=== PATIENT | female | born 1950 | race Caucasian/White ===

== ENCOUNTER 2018-12-02 22:49 | Inpatient (IN) | payer MEDICARE ==
[~2018-12-02] VITALS: Ht 161.3 cm; Wt 64.6 kg
[2018-12-02 23:00] VITALS: BP 114/54
[2018-12-02] MEDS ORDERED: NITROGLYCERIN PREMIX 250 ML IV PRN (23:30)
[2018-12-02] MEDS ORDERED: LEVO100T5 PO (23:34)
[2018-12-02] MEDS ORDERED: ESCITALOPRAM OX20 MG PO (23:35)
[2018-12-02] MEDS ORDERED: BUPR150T6 PO (23:37)
[2018-12-02] MEDS ORDERED: PANT40GR PO (23:38)
[2018-12-02] MEDS ORDERED: GABA600T7 PO (23:39)
[2018-12-02] MEDS ORDERED: MULT-650 PO (23:40)
[2018-12-02] MEDS ORDERED: FISH1CAP PO (23:41)
[2018-12-02] MEDS ORDERED: ASPI-630 PO (23:42)
[2018-12-02] MEDS ORDERED: NAPR220T70 PO (23:43)
[2018-12-02] MEDS ORDERED: CYCL10TA2 PO (23:44)
[2018-12-02] MEDS ORDERED: ATOR20TA58 PO (23:44)
[2018-12-02] MEDS ORDERED: HYDR-2761 PO (23:45)
[2018-12-02] MEDS ORDERED: [UNRECOGNIZED DRUG - REMARK] (23:46)
--- NOTE | 2018-12-02 23:54 | NUR ---
Admit from [facility] ER via EMS. Arrival 2244. A/O x 4. Skin warm, dry and pink. Transferred self from gurney to bed with minimal assist. Ambulated to with standby assist to void on arrival to room. Denies chest pain at this time. Nitro drip infusing at 5mcg/min started at [facility]. Sister Gladis at bedside. Orientated to room and call light. Reviewed POC to include NPO and lab draws such as troponin. Patient verbalized understanding. Resting in bed. Call light is at hand. VSS.
[2018-12-03] VITALS (25 sets, daily range): BP systolic 97–171; BP diastolic 41–64
[2018-12-03 07:30] LABS: BASO # 0.1 x10^3/uL (0.0-0.2); BASO % 1 % (0-3); EOS # 0.4 x10^3/uL (0.0-0.7); EOS % 5 % (0-3); HEMATOCRIT 35.4 % (36.0-47.0); HEMOGLOBIN 11.5 g/dL (12.0-15.5); LYMPH % 39 % (24-48); MEAN CORPUSCULAR HEMOGLOBIN 28 pg (25-35); MEAN CORPUSCULAR HGB CONC 32 g/dL (31-37); MEAN CORPUSCULAR VOLUME 85 fL (79-100); MONO # 0.6 x10^3/uL (0.0-1.1); MONO % 8 % (0-9); NEUT # 3.6 x10^3uL (1.8-7.7); NEUT % 47 % (31-73); PLATELET COUNT 239 x10^3/uL (140-400); RED BLOOD COUNT 4.15 x10^6/uL (3.50-5.40); RED CELL DISTRIBUTION WIDTH 19.6 % (11.5-14.5); WHITE BLOOD COUNT 7.6 x10^3/uL (4.0-11.0)
[2018-12-03 07:54] LABS: POTASSIUM 4.3 mmol/L (3.5-5.1)
[2018-12-03 08:19] LABS: CHOLESTEROL/HDL RATIO 1.5
--- NOTE | 2018-12-03 11:36 | PDOC2 ---
CARDIAC CONSULT DATE OF CONSULT Date of Consult DATE: 12/03/18 TIME: 11:24 REASON FOR CONSULT Reason for Consult: Chest pain REFERRING PHYSICIAN Referring Physician: Dr. Araujo SOURCE Source: Chart review, Patient HISTORY OF PRESENT ILLNESS HISTORY OF PRESENT ILLNESS This is a 68 yo female who initially presented to [facility] secondary to chest pain. Due to presentation/symptomatology with resolution with nitroglycerin, patient was transferred to [facility] for further evaluation and treatment. Patient reports pain began yesterday evening while driving home from the grocery store. Located in her left chest and radiated to her left shoulder. Describes a stabbing in nature. Associated with SOA and nausea/vomiting. No dizziness, diaphoresis, or palpitations. Seems to be slightly worse with deep breathing. Resolved with nitro in ED. Was transferred to [facility] with nitro gtt and has been pain free overnight. Patient reports pain to be similar to what she experienced last March when she had a mild KS. Cardiac cath at that time show mild non-obstructive CAD per her report. PAST MEDICAL HISTORY Cardiovascular: CAD (non-obstructive), KS Pulmonary: No pertinent hx CENTRAL NERVOUS SYSTEM: Seizure (as a child) GI: GERD Heme/Onc: Anemia NOS, Cancer (breast) Psych: Anxiety, Depression Musculoskeletal: Osteoarthritis Infectious disease: No pertinent hx ENT: No pertinent hx Renal/: No pertinent hx Endocrine: No pertinent hx Dermatology: No pertinent hx PAST SURGICAL HISTORY Past Surgical History: Cholecystectomy, Cataract Removal, Tonsillectomy, Hysterectomy, Other (left mastectomy, multile eye surgeries) FAMILY HISTORY Family History: Coronary Artery Disease, Diabetes SOCIAL HISTORY Smoke: No ALCOHOL: none Drugs: None Lives: with Family CURRENT MEDICATIONS CURRENT MEDICATIONS Current Medications Medications (Trade) Dose Ordered Sig/[place] Route PRN Reason Start Time Stop Time Status Last Admin Dose Admin Nitroglycerin/ Dextrose 250 ml @ 1.5 mls/hr CONT PRN IV SEE I/O RECORD 12/02/18 23:30 12/02/18 22:45 ALLERGIES ALLERGIES: Coded Allergies: tetracycline (Verified Allergy, Severe, coma, 12/02/18) ROS Review of System 14 point ROS conducted with pertinent positives noted above in HPI. PHYSICAL EXAM General: Alert, Oriented X3, Cooperative, No acute distress HEENT: Atraumatic, Mucous membr. moist/pink Lungs: Clear to auscultation, Normal air movement Heart: Regular rate, Normal S1, Normal S2, No murmurs Abdomen: Soft, No tenderness Extremities: No edema, Normal pulses Skin: No breakdown, No significant lesion Neuro: Normal speech, Sensation intact Psych/Mental Status: Mental status NL, Mood NL MUSCULOSKELETAL: Osteoarthritic changes both hands VITALS VITALS Vital Signs Date Time Temp Pulse Resp B/P (MAP) Pulse Ox O2 Delivery O2 Flow Rate FiO2 12/03/18 11:04 98.3 52 18 138/58 (84) 96 Room Air 98.3 LABS Lab: Laboratory Tests Test 12/03/18 00:05 12/03/18 07:15 Troponin I Quantitative < 0.017 ng/mL (0.000-0.055) < 0.017 ng/mL (0.000-0.055) White Blood Count 7.6 x10^3/uL (4.0-11.0) Red Blood Count 4.15 x10^6/uL (3.50-5.40) Hemoglobin 11.5 g/dL (12.0-15.5) Hematocrit 35.4 % (36.0-47.0) Mean Corpuscular Volume 85 fL (79-100) Mean Corpuscular Hemoglobin 28 pg (25-35) Mean Corpuscular Hemoglobin Concent 32 g/dL (31-37) Red Cell Distribution Width 19.6 % (11.5-14.5) Platelet Count 239 x10^3/uL (140-400) Neutrophils (%) (Auto) 47 % (31-73) Lymphocytes (%) (Auto) 39 % (24-48) Monocytes (%) (Auto) 8 % (0-9) Eosinophils (%) (Auto) 5 % (0-3) Basophils (%) (Auto) 1 % (0-3) Neutrophils # (Auto) 3.6 x10^3uL (1.8-7.7) Lymphocytes # (Auto) 3.0 x10^3/uL (1.0-4.8) Monocytes # (Auto) 0.6 x10^3/uL (0.0-1.1) Eosinophils # (Auto) 0.4 x10^3/uL (0.0-0.7) Basophils # (Auto) 0.1 x10^3/uL (0.0-0.2) Sodium Level 145 mmol/L (136-145) Potassium Level 4.3 mmol/L (3.5-5.1) Chloride Level 107 mmol/L (98-107) Carbon Dioxide Level 30 mmol/L (21-32) Anion Gap 8 (6-14) Blood Urea Nitrogen 14 mg/dL (7-20) Creatinine 1.0 mg/dL (0.6-1.0) Estimated GFR (Cockcroft-Gault) 55.0 Glucose Level 81 mg/dL (70-99) Calcium Level 9.0 mg/dL (8.5-10.1) Triglycerides Level 67 mg/dL (0-150) Cholesterol Level 113 mg/dL (0-200) LDL Cholesterol, Calculated 24 mg/dL (0-100) VLDL Cholesterol, Calculated 13 mg/dL (0-40) Non-HDL Cholesterol Calculated 37 mg/dL (0-129) HDL Cholesterol 76 mg/dL (40-60) Cholesterol/HDL Ratio 1.5 ASSESSMENT/PLAN ASSESSMENT/PLAN 1. Chest pain. Troponin series normal- AMI ruled out. Concerns for UA 2. CAD; non-obstructive from cardiac cath last year 3. Hypertension; controlled 4. Hyperlipidemia; statin 6. Sinus bradycardia. No pauses noted on tele 7. GERD Recommendations Check lipids Resume ASA Obtain echo to assess LV systolic function Avoid AV richard blocking agents D/w primary director revenue. Given risk factors, history, and presentation, recommend cardiac cath with possible PCI. R/b/a discussed with patient and she is agreeable. Will proceed with later today. STAR ANDERSON APRN Dec 03, 2018 11:36
--- NOTE | 2018-12-03 11:49 | NUR ---
SS following for discharge planning. SS reviewed pt chart. Pt is from home with spouse and currently on room air. Pt is listed as self pay but [facility] met with pt this morning in room and was notified by pt that she has [facility] insurance. Case management notified. No discharge needs noted at this time. SS will continue to follow for pending discharge needs.
--- NOTE | 2018-12-03 11:57 | HP ---
ADMIT DATE: 12/03/2018 CHIEF COMPLAINT: Chest pain. HISTORY OF PRESENT ILLNESS: The patient is a pleasant 68-year-old female who went to [facility] last night. She had chest pain. She had associated palpitations rated at 9/10. She describes it as agonizing on the left side. They placed her on nitro drip that seemed to help her pain. She has now been transferred to our facility where we are awaiting Cardiology input. The patient is currently being examined on the telemetry floor. PAST MEDICAL HISTORY: CAD with previous myocardial infarction, seizures, GERD, anemia, breast cancer, depression, osteoarthritis, cholecystectomy, cataract surgery, tonsillectomy, hysterectomy, mastectomy, multiple eye surgeries. ALLERGIES: TETRACYCLINE. FAMILY HISTORY: Coronary artery disease. SOCIAL HISTORY: She does not drink, smoke or take drugs. MEDICATIONS: Reviewed. She is on 13 home meds including cyclobenzaprine, atorvastatin, aspirin, Aleve, hydrocodone, gabapentin, Wellbutrin, Protonix, Synthroid, and vitamins. REVIEW OF SYSTEMS: GENERAL: No history of weight change, weakness or fevers. SKIN: No bruising, hair changes or rashes. EYES: She complains of left eye drainage. She had a recent procedure on that eye. NOSE AND THROAT: No history of nosebleeds, hoarseness or sore throat. HEART: No history of palpitations, chest pain or shortness of breath on exertion. LUNGS: Denies cough, hemoptysis, wheezing or shortness of breath. GASTROINTESTINAL: Denies changes in appetite, nausea, vomiting, diarrhea or constipation. GENITOURINARY: No history of frequency, urgency, hesitancy or nocturia. NEUROLOGIC: Denies history of numbness, tingling, tremor or weakness. PSYCHIATRIC: No history of panic, anxiety or depression. ENDOCRINE: No history of heat or cold intolerance, polyuria or polydipsia. EXTREMITIES: Denies muscle weakness, joint pain, pain on walking or stiffness. PHYSICAL EXAMINATION: VITAL SIGNS: Temperature afebrile, pulse is 52, respirations 18, blood pressure 138/58. GENERAL: She is alert, cooperative. Her is present. HEART: Normal S1, S2. LUNGS: Clear. ABDOMEN: Soft. EXTREMITIES: No edema. SKIN: No rash. ENDOCRINE: No thyromegaly. LYMPHATICS: No cervical nodes. HEMATOPOIETIC: No bruising. PSYCHIATRIC: She is stable. HEENT: The left eye has some drainage. LABORATORY DATA: White count 7, hemoglobin 11.5, platelets 239. Electrolytes are normal. Troponin is 0. ASSESSMENT AND PLAN: Chest pain, rule out recurrent coronary artery disease. The patient has been admitted on a nitro drip. We are doing cardiac enzymes. Continue nitro drip, cardiac monitoring, home meds. Consult Cardiology. Suspect she might need a stress test. DVT prophylaxis. Full code. PROGNOSIS: Guarded. STANLEY DENNEY DO DR: WHIT/abiola JOB#: [id number] / [id number]
[2018-12-03] MEDS ORDERED: ASPIRIN ENTERIC COATED 81 MG TABLET.DR. PO SCH (12:00)
--- NOTE | 2018-12-03 12:18 | CARD ---
MR#: [id number] Date of Study: 12/03/2018 Ordering Physician: STAR ANDERSON, Referring Physician: RUSTY QUESADA, Tech: Dorene Pack APPROVED REPORT EXAM: Two-dimensional and M-mode echocardiogram with Doppler and color Doppler. Other Information Quality : GoodHR: 49bpm INDICATION Chest Pain 2D DIMENSIONS RVDd2.1 (2.9-3.5cm)Left Atrium(2D)3.2 (1.6-4.0cm) IVSd0.7 (0.7-1.1cm)Aortic Root(2D)2.9 (2.0-3.7cm) LVDd4.6 (3.9-5.9cm)LVOT Diameter2.1 (1.8-2.4cm) PWd1.1 (0.7-1.1cm)LVDs3.1 (2.5-4.0cm) FS (%) 32.7 %SV59.2 ml LVEF(%)61.1 (>50%) Aortic Valve AoV Peak Ganesh.161.3cm/sAoV VTI31.5cm AO Peak GR.10.4mmHgLVOT VTI 32.06cm AO Mean GR.3mmHgAI P 1/2 [id number] Mitral Valve MV E Qrwzualx65.0cm/sMV DECEL FIBP263ob MV A Piyaucgx099.6cm/sE/A Ratio0.9 TDI Lateral E' P. V7.47cm/sMedial E' P. V7.20cm/s E/Lateral E'13.1E/Medial E'13.6 Tricuspid Valve TR P. Enqgkuel449uo/sRAP ZGLYVUPD7kuLy TR Peak Gr.81prHeDOVY45frEc Pulmonary Vein S1 Usmmsumj37.0cm/sS2 Cinxkumh79.07cm/s D2 Rfdoynft60.1cm/s LEFT VENTRICLE The left ventricle is normal size. There is normal left ventricular wall thickness. The left ventricu lar systolic function is normal and the ejection fraction is within normal range. The Ejection Fracti on is >55%. There is normal LV segmental wall motion. Transmitral Doppler flow pattern is Grade II-ps eudonormal filling dynamics. RIGHT VENTRICLE The right ventricle is normal size. There is normal right ventricular wall thickness. The right ventr icular systolic function is normal. ATRIA The left atrium size is normal. The right atrium size is normal. The interatrial septum is intact wit h no evidence for an atrial septal defect or patent foramen ovale as noted on 2-D or Doppler imaging. AORTIC VALVE The aortic valve is normal in structure and function. Doppler and Color Flow revealed mild aortic reg urgitation. There is no significant aortic valvular stenosis. MITRAL VALVE The mitral valve is normal in structure and function. There is no evidence of mitral valve prolapse. There is no mitral valve stenosis. Doppler and Color-flow revealed trace mitral regurgitation. TRICUSPID VALVE The tricuspid valve is normal in structure and function. Doppler and Color Flow revealed trace tricus pid regurgitation. There is no tricuspid valve stenosis. PULMONIC VALVE The pulmonic valve is not well visualized. Doppler and Color Flow revealed no pulmonic valvular regur gitation. GREAT VESSELS The aortic root is normal in size. The IVC is normal in size and collapses >50% with inspiration. PERICARDIAL EFFUSION There is no evidence of significant pericardial effusion. Critical Notification Critical Value: No <Conclusion> The left ventricular systolic function is normal and the ejection fraction is within normal range. Th e Ejection Fraction is >55%. There is normal LV segmental wall motion. Doppler and Color Flow revealed mild aortic regurgitation. Signed by : Santosh Barbour, Electronically Approved : 12/03/2018 12:18:38
[2018-12-03] MEDS ORDERED: IODIXANOL 320 MG/ML 100 ML VIAL. ONE (12:20)
[2018-12-03] MEDS ORDERED: LIDOCAINE 1% PF 2 ML VIAL. ONE (12:21)
[2018-12-03] MEDS ORDERED: HEPARIN for IV BOLUS 10,000 UNIT/10 ML VIAL. ONE (12:51)
[2018-12-03] MEDS ORDERED: fentaNYL PF VIAL 100 MCG/2 ML VIAL ONE (12:51)
[2018-12-03] MEDS ORDERED: MIDAZOLAM HCL/PF 2 MG/2 ML VIAL. ONE (12:51)
[2018-12-03] MEDS ORDERED: NITROGLYCERIN 200 MCG/2 ML SYRINGE FOR CATH/VASC LAB. ONE (12:52)
[2018-12-03] MEDS ORDERED: VERAPAMIL 5 MG/2 ML VIAL. ONE (12:52)
[2018-12-03] MEDS ORDERED: MIDAZOLAM HCL/PF 2 MG/2 ML VIAL. IV ONE (13:15)
[2018-12-03] MEDS ORDERED: IODIXANOL 320 MG/ML 100 ML VIAL. IART ONE (13:15)
[2018-12-03] MEDS ORDERED: HEPARIN for IV BOLUS 10,000 UNIT/10 ML VIAL. IART ONE (13:15)
[2018-12-03] MEDS ORDERED: NITROGLYCERIN 200 MCG/2 ML SYRINGE FOR CATH/VASC LAB. IART ONE (13:15)
[2018-12-03] MEDS ORDERED: fentaNYL PF VIAL 100 MCG/2 ML VIAL IV ONE (13:15)
[2018-12-03] MEDS ORDERED: LIDOCAINE 1% PF 2 ML VIAL. INJ ONE (13:15)
[2018-12-03] MEDS ORDERED: VERAPAMIL 5 MG/2 ML VIAL. IART ONE (13:15)
[2018-12-03] MEDS ORDERED: CONTRAST GIVEN. MC PRN (13:30)
--- NOTE | 2018-12-03 14:26 | CARD ---
MR#: [id number] Date of Study: 12/03/2018 Ordering Physician: STAR ANDERSON, Referring Physician: RUSTY QUESADA Tech: RT Mick (R) APPROVED REPORT Technologist: RT Mick (R) Nurse: Kamala Mitchell R.N. Procedure(s) performed: Moderate sedation: 19 Minutes Coronary angiography HISTORY : The patient is a 68 year-old female with a history of . INDICATION The indication(s) include : unstable angina . CSHA Clinical Frailty Scale CS Clinical Frailty Scale: Managing Well Heart Failure Heart Failure: No If Yes, Newly Diagnosed: No PROCEDURE NARRATIVE INFORMED CONSENT: After explaining the risks and benefits of the procedure and alternatives, informed consent was obtained. The patient was brought electively to the cardiac catheterization lab. A timeout was performed confi rming the patient's name, date of , procedure, and site of procedure. All necessary personnel w ere wearing the appropriate protective equipment and radiation monitor devices. (See nursing notes for medications administered). ACCESS: The right wrist was sterilely prepped and draped in the usual fashion. The right wrist was infiltrat ed with 1 mL of 2% lidocaine for subcutaneous anesthesia. A 6 [place] Terumo glide sheath was inserte d into the right radial artery without difficulty. CORONARY ANGIOGRAPHY: Right and left coronary angiography was performed using a 6Fr TIG 4.0 catheter. All catheter exchang es and advancements were performed over a guidewire. CLOSURE: At case completion the right radial sheath was removed and a Terumo radial band was applied with 13 m l of air. COMPLICATIONS: The patient tolerated the procedure well and there were no immediate complications. FINDINGS: HEMODYNAMICS: AO: 120/70 CORONARY ANGIOGRAPHY: LM is a large caliber vessel with normal angiographic appearance. LAD is a large caliber vessel with normal angiographic appearance. D1 is a moderate caliber vessel with normal angiographic apeparance. LCx is a large caliber dominant vessel with normal angiographic appearance. OM1 is a moderate caliber vessel with normal angiographic appearance. LPDA is a moderate caliber vessel with normal angiographic appearance. RCA is a small caliber non-dominant vessel with normal angiographic appearance. Conclusion 1. No significant coronary artery disease. Recommendations Aggressive Medical Therapy Signed by : Santosh Barbour, Electronically Approved : 12/03/2018 14:26:07
--- NOTE | 2018-12-03 18:08 | NUR ---
TR band on R wrist removed. No bleeding, site is soft. Gauze & tape applied over site, board left on.
[2018-12-03] MEDS ORDERED: AMLO5TAB4 PO (18:16)
--- NOTE | 2018-12-03 19:10 | NUR ---
Discharge Note: ARIEL WEI [address] [place] [address] Discharge instructions and discharge home medications reviewed with Patient and a copy given. All questions have been answered and understanding verbalized. The following instructions and handouts were given: Norvasc info, chest pain info, post cardiac cath discharge instructions, discharge instructions. Discontinued lines and drains: Peripheral IV intact. Patient discharged to Home or Self Care with Spouse via Wheelchair at 1910. BP was 135/42 at time of discharge. No bleeding on R wrist at time of discharge, arm board in place.
== END 2018-12-03 19:10 | disposition home or self-care (01) | DRG 287 ==
LOC: 2 NORTH 22:49
PROVIDERS: ADMIT Family Medicine; ATTEND Family Medicine
PROC: B2111ZZ Fluoroscopy of Multiple Coronary Arteries using Low Osmolar Contrast (ICD-10-PCS; principal; 2018-12-03)
DX: I20.0 Unstable angina (principal); I10 Essential (primary) hypertension; K21.9 Gastro-esophageal reflux disease without esophagitis; F32.9 Major depressive disorder, single episode, unspecified; F41.9 Anxiety disorder, unspecified; M19.90 Unspecified osteoarthritis, unspecified site; E78.5 Hyperlipidemia, unspecified; R00.1 Bradycardia, unspecified; I25.2 Old myocardial infarction; Z82.49 Family history of ischemic heart disease and other diseases of the circulatory system; Z83.3 Family history of diabetes mellitus; Z88.1 Allergy status to other antibiotic agents; Z85.3 Personal history of malignant neoplasm of breast; Z90.12 Acquired absence of left breast and nipple; Z90.710 Acquired absence of both cervix and uterus; Z90.49 Acquired absence of other specified parts of digestive tract
CPT/HCPCS: 36415; 80048; 80061; 84484; 85025; 93306; 93454; 99152; C1769; C1892; J1644; J2250; J3010; J3490; Q9967

== ENCOUNTER 2020-02-29 03:53 | Inpatient (IN) | payer MEDICARE ==
[~2020-02-29] VITALS: Ht 158.8 cm; Wt 63.8 kg
[~2020-02-29 03:53] MED LIST: AMLO5TAB4 PO; ASPI-630 PO; ATOR20TA58 PO; BUPR150T6 PO; CYCL10TA2 PO; ESCITALOPRAM OX20 MG PO; FISH1CAP PO; GABA600T7 PO; HYDR-2761 PO; LEVO100T5 PO; MULT-650 PO; NAPR220T70 PO; PANT40GR PO; [UNRECOGNIZED DRUG - REMARK]
[2020-02-29 04:36] VITALS: BP 107/47
[2020-02-29] MEDS ORDERED: FERR325T14 PO (04:40)
[2020-02-29] MEDS ORDERED: CALC-104 PO (04:40)
[2020-02-29] MEDS ORDERED: LOSA-73 PO (04:40)
[2020-02-29] MEDS ORDERED: DULO40CA2 PO (04:40)
[2020-02-29] MEDS ORDERED: LEVO88TA4 PO (04:40)
[2020-02-29] MEDS ORDERED: LEVOTHYROXINE 88 MCG TABLET PO SCH ×2 (06:00→10:00)
[2020-02-29 07:05] VITALS: BP 96/45
[2020-02-29] MEDS ORDERED: ACETAMINOPHEN 325 MG TABLET. PO PRN (09:15)
[2020-02-29] MEDS ORDERED: ONDANSETRON PF 4 MG/2 ML VIAL. IV PRN (09:15)
[2020-02-29] MEDS ORDERED: NITROGLYCERIN SUBLINGUAL 0.4 MG BOTTLE OF 25. SL PRN (09:15)
[2020-02-29] MEDS ORDERED: GABAPENTIN 300 MG CAPSULE. PO SCH (10:00)
[2020-02-29] MEDS ORDERED: ASPIRIN CHEWABLE 81 MG TABLET. PO SCH (10:00)
[2020-02-29] MEDS ORDERED: LOSARTAN POTASSIUM 50 MG TABLET. PO SCH (10:00)
[2020-02-29] MEDS ORDERED: DULoxetine HCL 20 MG CAPSULE.DR PO SCH (10:00)
[2020-02-29 10:43] VITALS: BP 100/49
--- NOTE | 2020-02-29 11:50 | PDOC ---
Provider Note Provider Note Full note dictated. Start renexa GERD w/u per PCP Decrease Losartan to 25mg daily and reassess on an outpt basis. MARIEL BARNES MD February 29, 2020 11:49
--- NOTE | 2020-02-29 12:13 | CONS ---
DATE OF CONSULTATION: 02/29/2020 REASON FOR CONSULTATION: Chest pain. CONSULTING PHYSICIAN: Dr. Torres. HISTORY OF PRESENT ILLNESS: The patient is a pleasant 69-year-old woman who was in her usual state of health and she apparently returned home from work while eating began to have some epigastric discomfort, which also radiated up to her left shoulder. She denies any associated nausea, diarrhea, fevers or chills. No exertional dyspnea or chest pain over the last several days. She did have some nitroglycerin that was provided in ED, which she thinks seems to have helped. She denies that this is related to any of her GERD issues. Of note, the patient previously has had 2 such episodes of severe symptoms and cardiac catheterization at both times have not reveal any significant obstructive pathology. PAST MEDICAL HISTORY: Seizure, GERD, anemia, cancer of the breast, osteoarthritis. PAST SURGICAL HISTORY: Cholecystectomy, cataract removal, tonsillectomy, hysterectomy, and mastectomy with multiple eye surgeries. FAMILY HISTORY: Noncontributory. SOCIAL HISTORY: No alcohol, tobacco or illicit drug use. She lives with her family. She remains active. CURRENT CARDIOVASCULAR MEDICATIONS: Atorvastatin, losartan and aspirin. REVIEW OF SYSTEMS: Negative for 10 out of 14 systems reviewed, unless otherwise mentioned above in HPI. PHYSICAL EXAMINATION: VITAL SIGNS: Afebrile, 58, 16, 100/49, 98% on room air. GENERAL: She is alert and oriented, in no acute distress. HEAD AND NECK: Unremarkable. CARDIAC: Regular rate and rhythm without murmurs, rubs or gallops. LUNGS: Clear to auscultation bilaterally. ABDOMEN: Soft, nontender, nondistended. EXTREMITIES: No clubbing, cyanosis or edema. NEUROLOGIC: No focal deficits. MUSCULOSKELETAL: No trauma. SKIN: No rashes. DIAGNOSTIC STUDIES: EKG is unremarkable. LABORATORY DATA: Labs at the outside facility at [facility] are unremarkable. Cardiac catheterization last year revealed no obvious pathology. IMPRESSION: Atypical chest pain: This is likely either esophageal versus cardiac spasm or gastroesophageal reflux disease. At this present time, no obvious evidence of myocardial injury. In light of her prior 2 negative cardiac catheterization within the last 5 years, we would continue treatment in a conservative fashion. RECOMMENDATIONS: We will plan for initiation of Ranexa 500 mg p.o. b.i.d. with close followup with a coating supervisor at [facility]. I discussed this with Dr. Negron who is her coating supervisor at [facility]. From a cardiac perspective, okay with discharge. Thank you for this consultation. MARIEL BARNES MD DR: JAIRO/abiola JOB#: [id number] / [id number]
[2020-02-29 12:16] LABS: ALBUMIN 3.1 g/dL (3.4-5.0); ALBUMIN/GLOBULIN RATIO 1.1 (1.0-1.7); CALCIUM 8.8 mg/dL (8.5-10.1); GFR 54.8; POTASSIUM 5.1 mmol/L (3.5-5.1); TOTAL BILIRUBIN 0.4 mg/dL (0.2-1.0); TOTAL PROTEIN 5.9 g/dL (6.4-8.2)
--- NOTE | 2020-02-29 13:40 | SSS ---
ADMIT DATE: 02/29/2020 CHIEF COMPLAINT: Chest pain. HISTORY OF PRESENT ILLNESS: The patient is a pleasant elderly female, who presented with chest pain. She was admitted. We consulted Cardiology this morning. They have seen her, they are okay with her going home. PAST MEDICAL HISTORY: Seizures, GERD, anemia, breast cancer, osteoarthritis, cholecystectomy, cataracts, tonsillectomy, hysterectomy, mastectomy, multiple eye surgeries. ALLERGIES: TETRACYCLINE. FAMILY HISTORY: Hypertension. SOCIAL HISTORY: She does not drink, smoke or take drugs. Lives with her family. MEDICATIONS: Reviewed, please refer to the MRAD. REVIEW OF SYSTEMS: GENERAL: No history of weight change, weakness or fevers. SKIN: No bruising, hair changes or rashes. EYES: No blurred, double or loss of vision. NOSE AND THROAT: No history of nosebleeds, hoarseness or sore throat. HEART: No history of palpitations, chest pain or shortness of breath on exertion. LUNGS: Denies cough, hemoptysis, wheezing or shortness of breath. GASTROINTESTINAL: Denies changes in appetite, nausea, vomiting, diarrhea or constipation. GENITOURINARY: No history of frequency, urgency, hesitancy or nocturia. NEUROLOGIC: Denies history of numbness, tingling, tremor or weakness. PSYCHIATRIC: No history of panic, anxiety or depression. ENDOCRINE: No history of heat or cold intolerance, polyuria or polydipsia. EXTREMITIES: Denies muscle weakness, joint pain, pain on walking or stiffness. PHYSICAL EXAMINATION: VITALS: Within normal limits and are stable. GENERAL: No apparent distress. Alert and oriented. HEENT: Normal cephalic atraumatic, external auditory canals are patent. EYES: Extraocular muscles are intact, pupils are equally round and reactive to light and accommodation. MUSCULOSKELETAL: Well developed, well nourished, good range of motion. ENDOCRINE: No thyromegaly was palpated. LYMPHATICS: No cervical chain or axillary nodes were noted. HEMATOPOIETIC: No bruising. NECK: Supple, no JVD, no thyromegaly was noted. LUNGS: Clear to auscultation in all lung fleming without rhonchi or wheezing. HEART: RRR, S1, S2 present. Peripheral pulses intact, no obvious murmurs were noted. ABDOMEN: Soft, nontender. Positive bowel sounds no organomegaly, normal bowel sounds. EXTREMITIES: Without any cyanosis, clubbing, or edema. Pedal pulses intact, Homans sign is negative. NEUROLOGIC: Normal speech, normal tone. A & O x3, moves all extremities, no obvious focal deficits. PSYCHIATRIC: Normal affect, normal mood. Stable. SKIN: No ulcerations or rashes, good skin turgor, no jaundice. VASCULAR: Good capillary refill, neurovascular bundle appears to be intact. ASSESSMENT AND PLAN: Atypical chest pain. We will discharge. DISPOSITION: Home. ACTIVITY: As tolerated. DIET: Low sodium. MEDICATIONS: Please see MRAD. TOTAL TIME: 32 minutes. NIAL Gal DENNEY DO DR: WHIT/abiola JOB#: [id number] / [id number]
--- NOTE | 2020-02-29 14:38 | NUR ---
Discharge Note: ARIEL WEI [address] Discharge instructions and discharge home medications reviewed with Patient and a copy given. All questions have been answered and understanding verbalized. The following instructions and handouts were given: diet, hyper-hypotension, chest pain, follow up with primary and business department chair, medications and holding losartan for low BP. Discontinued lines and drains: IV removed. No lines present on discharge. Patient discharged to Home. left by wheelchair with nurse to 's private vehicle. Addendum: 02/29/20 at 1442 by WANDA MAYES RN Patient requested and was given a copy of her labs.
[2020-02-29] MEDS ORDERED: ATORVASTATIN CALCIUM 20 MG TABLET PO SCH (21:00)
== END 2020-02-29 14:25 | disposition home or self-care (01) | DRG 392 ==
LOC: 2 SOUTH 03:53
PROVIDERS: ADMIT Internal Medicine; ATTEND Internal Medicine
DX: K21.9 Gastro-esophageal reflux disease without esophagitis (principal); D64.9 Anemia, unspecified; M19.90 Unspecified osteoarthritis, unspecified site; Z82.49 Family history of ischemic heart disease and other diseases of the circulatory system; Z85.3 Personal history of malignant neoplasm of breast; Z90.710 Acquired absence of both cervix and uterus; Z90.49 Acquired absence of other specified parts of digestive tract; Z88.8 Allergy status to other drugs, medicaments and biological substances; Z79.899 Other long term (current) drug therapy
CPT/HCPCS: 36415; 80053; 83690; 84484; G0378

== ENCOUNTER 2021-05-17 06:14 | Observation (INO) | payer MEDICARE ==
[2021-05-17] VITALS (9 sets, daily range): BP systolic 112–139; BP diastolic 49–80
[~2021-05-17] VITALS: Ht 157.5 cm; Wt 73.0 kg
[~2021-05-17 06:14] MED LIST changes: +ARIP5TAB13 PO; +ASCO-78 PO; +BUPR150T21 PO; -BUPR150T6 PO; +CALC-104 PO; +DULO40CA2 PO; +FERR325T14 PO; +HYDROmorphone 2 MG/ML VIAL IVP PRN; +IV RINGERS,LACTATED 1000ML 1,000 ML IV SCH; +LEVO88TA4 PO; +LOSA-73 PO; +MORPHINE SULFATE 2 MG/ML INJ. IVP PRN; +PANT40TA77 PO; +PROCHLORPERAZINE 10 MG/2 ML VIAL. IVP PRN; +SUCR1TAB PO; +ceFAZolin SODIUM IV Push 1 GM VIAL. IVP PRN; +fentaNYL PF VIAL 100 MCG/2 ML VIAL IVP PRN
[2021-05-17] MEDS ORDERED: BUPIVACAINE-EPI 0.5% 30 ML VIAL KIT. ONE ×2 (07:03→07:04)
[2021-05-17] MEDS ORDERED: SURGICEL HEMOSTAT 4X8 EACH. ONE ×2 (07:04→07:05)
[2021-05-17] MEDS ORDERED: ROCURONIUM 50 MG/5 ML VIAL. ONE (07:13)
[2021-05-17] MEDS ORDERED: PROPOFOL 10 MG/ML (20ML) VIAL. IV ONE (07:13)
[2021-05-17] MEDS ORDERED: fentaNYL PF VIAL 100 MCG/2 ML VIAL ONE ×2 (07:13→11:42)
[2021-05-17] MEDS ORDERED: LIDOCAINE 2% PF 5 ML VIAL. ONE (07:13)
[2021-05-17] MEDS ORDERED: ONDANSETRON PF 4 MG/2 ML VIAL. ONE (07:13)
[2021-05-17] MEDS ORDERED: DEXAMETHASONE SOD PHOS 4 MG/ML VIAL ONE (07:13)
[2021-05-17] MEDS ORDERED: SUCCINYLCHOLINE 200 MG/10 ML VIAL. ONE (07:14)
[2021-05-17] MEDS ORDERED: ePHEDrine PF IN SALINE 50 MG/10 ML SYRINGE. IV ONE (07:52)
[2021-05-17] MEDS ORDERED: VASOPRESSIN 20 UNIT/ML VIAL. ONE (07:58)
[2021-05-17] MEDS ORDERED: ALBUMIN HUMAN 5% 500 ML IV ONE (08:02)
[2021-05-17] MEDS ORDERED: NEOSTIGMINE 10 MG/10 ML VIAL. ONE ×2 (08:36→08:38)
[2021-05-17] MEDS ORDERED: GLYCOPYRROLATE 1 MG/5 ML VIAL. ONE (08:36)
[2021-05-17] MEDS ORDERED: NEOSTIGMINE METHYLSULFATE 5 MG/5 ML SYRINGE. ONE (08:39)
--- NOTE | 2021-05-17 11:26 | PDOC4 ---
Operative Note Operative Note Operative Note Preoperative Diagnosis: Large paraesophageal hernia with gastroesophageal reflux disease Postoperative Diagnosis: Same Procedure: Laparoscopic repair of large paraesophageal hernia with Antony fundoplication, gastropexy Surgeon: Juventino Mata.: Darci Kovacs FA Anesthesia: Gen. Estimated Blood Loss: 20 mL Specimen: Hernia sac to pathology Drains: None Complications: None Indications: The patient is a 70-year-old female who is referred due to a large symptomatic hiatal hernia. She was offered surgical repair. The risks of pinzon rgery were discussed which include bleeding, infection, recurrent herniation, gastric or esophageal perforation, visceral injury, recurrent reflux, gas bloat syndrome, dysphasia, potential need for additional surgeries or procedures. She understands and would like to proceed. Description: The patient was taken to the operating room and placed supine on the operating table. General anesthesia was performed. The patient was then placed in lithotomy. The abdomen was prepped with ChloraPrep and draped in a standard surgical fashion. A small incision was made superior to and to the patient's left of the umbilicus through which a visualized 5 mm trocar was inserted. A pneumoperitoneum was then created and the laparoscope was introduced. In the right lateral abdomen a 12 mm trocar was inserted through which a soft fan retractor was used to elevate the left lobe of the liver. In the right upper quadrant a 5 mm trocar was inserted. In the left upper quadrant an 11 mm trocar was inserted while in the left lateral abdomen a 5 mm trocar was inserted. Attention was then directed to the diaphragmatic hiatus. As expected there was a large hiatal hernia defect with much of the stomach present in the chest. A significant amount of stomach and omentum was pulled out of the chest and able to be reduced. To assist with visualization and exposure another 5 mm trocar was placed in the patient's left abdomen. We then began mobilizing the entire hernia sac within the mediastinum. We started this on the right side and began freeing up the sac from the right bharathi. The Harmonic scalpel assisted for much of this dissection. We continued mobilizing the sac superiorly well into the mediastinum. We continued this dissection anteriorly freeing up the sac and its attachments in this location. In doing so a small focal opening was made in the pleura which was sutured closed with interrupted 3-0 Vicryl stitches. The dissection then continued along the left bharathi and the sac and attachments were mobilized here as well. Due to the large size and redundancy of the sac considerable time was required in freeing this out of the mediastinum. Portions of the redundant sac were also fully excised and sent off to pathology as a specimen. The gastrocolic omentum was then opened with the Harmonic scalpel in the upper portion of the greater curvature. We then freed up the upper part of the greater curvature and fundus using the harmonic scalpel. The dissection continued all the way back up to the left bharathi and any remaining splenic agustin chments were also mobilized. At this point the esophagus was readily visualized and we were able to free up the area around his gastroesophageal junction. A Dolores drain was then placed around the esophagus at the GE junction and clips were applied holding the Dolores in place. With retraction on the Dolores we were able to continue freeing up any remaining sac attachments particularly in the posterior location. At this point the GE junction was well within the abdominal cavity. The left and right bharathi were then reapproximated with interrupted 2-0 silk sutures using the Endo Stitch device. The right bharathi was extremely thin. Stitches were applied both anteriorly and posteriorly allowing for closure of the hernia defect. We elected to reinforce the closure with a Phasix mesh patch. The mesh was tailored to fit the space and a slit was made to accommodate the esophagus. The mesh was then introduced and laid up against the diaphragm and around the esophagus. Initial fixation sutures were placed at the superior corners of the mesh using 2-0 silk. The entire mesh was then fixed to the diaphragm using the Tisseel fibrin glue. The fundus was then wrapped around in a 360 fashion creating the fundoplication. A shoeshine maneuver was used to ensure no twists or kinks. An initial 2-0 Ethibond suture was used securing the fundic lips together. Another suture was placed superior to this which incorporated a small bite of the anterior esophagus. An additional suture was then placed inferiorly completing the fundoplication. At this point hemostasis was good, the hernia was well repaired with good coverage from the biologic mesh, and the fundoplication was intact with a nice orientation. The pressure was reduced in the abdomen and to 2-0 Ethibond sutures were used for a gastropexy. The sutures were placed anchoring the body of the stomach to the anterior abdominal wall. The 11 and 12 mm trochars were then removed and the fascia closed with 0 Vicryl using an Endo Close. The remaining ports were removed and the pneumoperitoneum was relieved. Skin at all incisions was closed with 4-0 Monocryl. Steri-Strips and dressings were appli ed. The patient tolerated the procedure well. JUHI HEART MD May 17, 2021 11:26
[2021-05-17] MEDS ORDERED: 0.9 % SODIUM CHLORIDE 10 ML DISP.SYRIN. IV PRN (11:30)
[2021-05-17] MEDS ORDERED: IV NORMAL SALINE 1000ML BAG 1,000 ML IV SCH (11:30)
[2021-05-17] MEDS ORDERED: ONDANSETRON PF 4 MG/2 ML VIAL. IVP PRN (11:30)
[2021-05-17] MEDS ORDERED: PROCHLORPERAZINE 10 MG/2 ML VIAL. IV PRN (11:30)
[2021-05-17] MEDS ORDERED: NALOXONE 0.4 MG/ML VIAL. IV PRN (11:30)
[2021-05-17] MEDS: fentaNYL PF VIAL 100 MCG/2 ML VIAL IVP PRN ×2 (11:45→12:01)
[2021-05-17] MEDS: HYDROmorphone 2 MG/ML VIAL IV PRN ×2 (14:16→23:23)
[2021-05-17] MEDS: IV 1/2 NORMAL SALINE 1,000 ML IV SCH (15:00)
[2021-05-18] MEDS: IV 1/2 NORMAL SALINE 1,000 ML IV SCH ×3 (01:32→21:00)
[2021-05-18 02:58] VITALS: BP 100/42
[2021-05-18 07:00] VITALS: BP 120/50
--- NOTE | 2021-05-18 08:56 | PDOC ---
SURGICAL PROGRESS NOTE DATE: 05/18/21 TIME: 08:55 Subjective no reflux hungry Vital Signs Vital Signs Date Time Temp Pulse Resp B/P (MAP) Pulse Ox O2 Delivery O2 Flow Rate FiO2 05/18/21 07:00 98.2 62 16 120/50 (73) 80 Nasal Cannula 2.0 98.2 I&O Intake and Output 05/18/21 07:00 Intake Total 1650 ml Output Total 220 ml Balance 1430 ml Intake Oral 50 ml IV Total 1600 ml Output Urine Total 200 ml Estimated Blood Loss 20 ml # Voids 2 General: Alert, Oriented X3, Cooperative Abdomen: Soft, Other (lap sites intact ) Assessment/Plan s/p sandy will start clears, oral pain medication Justicifation of Admission Dx: Justifications for Admission: Justification of Admission Dx: Yes Comments: vineet DACOSTA TISHA L APRN May 18, 2021 08:56
[2021-05-18] MEDS: HYDROcodon/APAP 7.5/325MG ORAL 15 ML SOLUTION PO PRN (09:39)
--- NOTE | 2021-05-18 10:10 | NUR ---
SW following. Discussed with RN, pt from home with family, clear liquid diet. POD:1, gets around fine per RN. RN advised no SW needs, anticipates discharge home tomorrow. SW will continue to follow.
[2021-05-18 11:00] VITALS: BP 115/61
[2021-05-18 15:00] VITALS: BP 118/51
[2021-05-18 18:43] VITALS: BP 157/66
[2021-05-18 23:10] VITALS: BP 140/60
[2021-05-19 03:30] VITALS: BP 138/58
[2021-05-19 07:00] VITALS: BP 138/67
[2021-05-19] MEDS: IV 1/2 NORMAL SALINE 1,000 ML IV SCH (07:00)
[2021-05-19] MEDS: HYDROcodon/APAP 7.5/325MG ORAL 15 ML SOLUTION PO PRN (08:53)
[2021-05-19] MEDS ORDERED: HYDR15SO6 PO (09:17)
--- NOTE | 2021-05-19 09:19 | DISCH ---
DISCHARGE INSTRUCTIONS Condition on Discharge Condition on Discharge: Stable Activity After Discharge Activity Instructions for Disc: Activity as tolerated Lifting Instructions after Dis: No heavy lifting, No pulling or pushing, Do not lift >10 pounds, Add. restrict see below Driving Instructions after Dis: Do not drive today Weight Bearing Status after Di: As tolerated Diet after Discharge Diet after Discharge: Full Liquid (x 2weeks) Diet Texture: Regular Liquid Texture: Thin Liquid Swallowing Supervision: None needed Wound Incision Care Wound/Incision Care: No wound care needed Other wound/incision instructi: can leave incisions uncovered, ok to shower, no tub baths Contacting the DRDimple after DC Call your doctor for: Concerns you may have Follow-Up Follow up with: Dr Jauregui 2 weeks, call to schedule [phone] CHARLES LUEVANO APRN May 19, 2021 09:19
--- NOTE | 2021-05-19 09:21 | PDOC ---
SURGICAL PROGRESS NOTE DATE: 05/19/21 TIME: 09:20 Subjective incisional pain tolerating clears no reflux Vital Signs Vital Signs Date Time Temp Pulse Resp B/P (MAP) Pulse Ox O2 Delivery O2 Flow Rate FiO2 05/19/21 08:53 Room Air 05/19/21 07:00 99.0 86 20 138/67 (90) 92 99.0 05/18/21 23:10 2.0 I&O Intake and Output 05/19/21 07:00 Intake Total 240 ml Balance 240 ml Intake Oral 240 ml # Voids 3 General: Alert, Oriented X3, Cooperative Abdomen: Soft, Other (lap dressings dry) Assessment/Plan FL liquids home FU 2 weeks Justicifation of Admission Dx: Justifications for Admission: Justification of Admission Dx: Yes CHARLES LUEVANO HIGH MAN May 19, 2021 09:21
[2021-05-19 11:01] VITALS: BP 127/56
--- NOTE | 2021-05-19 15:08 | PATHOLOGY ---
[facility] Accession Number: [id number] . 01 Material submitted: . hernia - HIATAL HERNIA SAC . 01 Clinical history: . HEBERT FUNDOPLICATOIN . 02 Diagnosis: Segments of focal mesothelial-lined fibromembranous and fibroadipose tissue, hiatal hernia repair: - Hernia sac. - Three small lymph nodes showing reactive changes. (JPM:brian; 05/19/2021) QMS 05/19/2021 1435 Local . 02 Comment: There is no evidence of malignancy. (JPM:brian; 05/19/2021) . 02 Electronically signed: . Jeffrey Gabriel MD, Pathologist NPI- [id number] . 01 Gross description: . The specimen is received in formalin, labeled "Nicole Huffman and hiatal hernia sac". It consists of 2 conde-brown, irregular fatty fibromembranous soft tissue fragments measuring 4.3 and 5.0 cm. Sectioning reveals focally fatty and focally hemorrhagic cut surfaces. The customer development representative sections are submitted in A1. (MRF; 05/17/2021) MFE/MFE 05/17/2021 1814 Local . 02 Pathologist provided ICD-10: K44.9 . 02 CPT . 949891 Specimen Comment: A courtesy copy of this report has been sent to [phone] Specimen Comment: Report sent to Performed at: 01 [facility] [address], [place] [id number] MD Oscar Stone MD Phone: [phone] Performed at: 02 [facility] [address] [place], [place] [id number] MD Jeffrey Gabriel MD Phone: [phone]
--- NOTE | 2021-05-24 10:51 | PDOC3 ---
Discharge Summary Visit Information Date of Admission: May 17, 2021 Date of Discharge: May 19, 2021 Admitting Diagnosis: Large paraesophageal hernia with gastroesophageal reflux Final Diagnosis Large paraesophageal hernia with gastroesophageal reflux disease Brief Hospital Course Allergies Allergies Coded Allergies Type Severity Reaction Last Updated Verified tetracycline Allergy Severe coma 05/17/21 Yes Brief Hospital Course Ms. Huffman is a 70 old female who underwent Laparoscopic repair of large paraesophageal hernia with Antony fundoplication, gastropexy. postoperatively tolerating diet, ambulating, pain controlled, and no reflux symptoms. Ready for discharge home Discharge Information Condition at Discharge: Stable Follow Up: Weeks (2) Disposition/Orders: D/C to Home Scheduled Aripiprazole (Abilify) 5 Mg Tablet, 5 MG PO DAILY for depression, (Reported) Entered as Reported by: WILLIAM RASMUSSEN on 05/14/211356 Last Taken: Unknown Dose on 05/17/21 0545 Last Action: Last Taken Edited on 05/17/21645 by ELISABETH MEJIA Ascorbate Calcium (Vitamin C) 500 Mg Tablet, 500 MG PO DAILY for vitamin, (Reported) Entered as Reported by: WILLIAM RASMUSSEN on 05/14/21 135 Last Taken: Unknown Dose on 05/14/21 Last Action: Last Taken Edited on 05/17/21645 by ELISABETH MEJIA Aspirin (Aspirin) 81 Mg Tab.chew, 81 MG PO DAILY for heart healthy, (Reported) Entered as Reported by: SUE VIRAMONTES on 12/02/18 2342 Last Taken: Unknown Dose on 05/05/21 Last Action: Last Taken Edited on 05/14/21 1355 by WILLIAM RASMUSSEN Atorvastatin Calcium (Atorvastatin Calcium) 20 Mg Tablet, 20 MG PO HS for FOR CHOLESTEROL, #30 Ref 0 (Reported) Entered as Reported by: SUE VIRAMONTES on 12/02/18 2344 Last Taken: Unknown Dose on 05/16/21 Last Action: Last Taken Edited on 05/17/21645 by ELISABETH MEJIA Calcium Citrate/Vitamin D3 (Citracal + D Maximum Caplet) 1 Each Tablet, 1 TAB PO TID for vitamin for 30 Days, #90 Ref 0 (Reported) Entered as Reported by: Boo Thomas on 02/29/20 0440 Last Taken: Unknown Dose on 05/14/21 Last Action: Last Taken Edited on 05/17/2146 by ELISABETH MEJIA Cyclobenzaprine Hcl (Cyclobenzaprine Hcl) 10 Mg Tablet, 10 MG PO TID for muscle spasms, (Reported) Entered as Reported by: WILLIAM RASMUSSEN on 05/14/21 1357 Last Taken: Unknown Dose on 05/16/21 Last Action: Last Taken Edited on 05/17/21645 by ELISABETH MEJIA Duloxetine HCl (Duloxetine HCl) 40 Mg Capsule.dr, 1 CAP PO DAILY for depression for 30 Days, #30 Ref 0 (Reported) Entered as Reported by: Boo Thomas on 02/29/20439 Last Taken: Unknown Dose on 05/02/21 Last Action: Last Taken Edited on 05/17/21645 by ELISABETH MEJIA Ferrous Sulfate (Ferrous Sulfate) 325 Mg Tablet, 1 TAB PO DAILY for iron, #30 Ref 3 (Reported) Entered as Reported by: Boo Thomas on 02/29/20439 Last Taken: Unknown Dose on 05/16/21 Last Action: Last Taken Edited on 05/17/21645 by ELISABETH MEJIA Fish Oil/Dha/Epa (Fish Oil 1,200 Mg Fish Oil) 1 Each Capsule, 1 EACH PO DAILY for heart healthy, (Reported) Entered as Reported by: SUE VIRAMONTES on 12/02/18 2341 Last Taken: Unknown Dose on 05/05/21 Last Action: Last Taken Edited on 05/14/21 1355 by WILLIAM RASMUSSEN Gabapentin (Gabapentin) 600 Mg Tablet, 300 MG PO BID for NEUROGENIC PAIN, (Reported) Entered as Reported by: USE VIRAMONTES on 12/02/18 2339 Last Taken: Unknown Dose on 05/16/21 Last Action: Last Taken Edited on 05/17/2146 by ELISABETH MEJIA Levothyroxine Sodium (Levothyroxine Sodium) 88 Mcg Tablet, 1 TAB PO DAILY for thyroid, #30 Ref 5 (Reported) Entered as Reported by: Boo Thomas on 02/29/20439 Last Taken: Unknown Dose on 05/17/21 0545 Last Action: Last Taken Edited on 05/17/21645 by ELISABETH MEJIA Losartan Potassium (Losartan Potassium) 50 Mg Tablet, 50 MG PO DAILY for HYPERTENSION, (Reported) Entered as Reported by: Boo Thomas on 02/29/20439 Last Taken: Unknown Dose on 05/17/21 0545 Last Action: Last Taken Edited on 05/17/21645 by ELISABETH MEJIA Multivits-Min/Iron/FA/Lutein (Centrum Silver Women Tablet) 1 Each Tablet, 1 EACH PO DAILY for supplement, (Reported) Entered as Reported by: SUE VIRAMONTES on 12/02/180 Last Taken: Unknown Dose on 05/14/21 Last Action: Last Taken Edited on 05/17/21645 by ELISABETH MEJIA Scheduled PRN Hydrocodone Bit/Acetaminophen (Hydrocodone-Apap 7.5-325/15 Soln ) 15 Ml Solution, 15 ML PO PRN Q6HRS PRN for PAIN for 7 Days, #300 Ref 0 Prescribed by: Charles Paul on 05/19/21 0917 Discontinued Medications Hydrocodone Bit/Acetaminophen (Hydrocodone-Apap 5-325 ) 1 Tab Tablet, 1 TAB PO PRN Q6HRS PRN for PAIN, Ref 0 (Reported) Entered as Reported by: SUE VIRAMONTES on 12/02/18 2345 Last Taken: Unknown Dose on 05/16/21 Last Action: Last Taken Edited on 05/17/21645 by ELISABETH MEJIA Naproxen Sodium (Aleve) 220 Mg Tablet, 220 MG PO DAILY for arthritis, (Reported) Entered as Reported by: SUE VIRAMONTES on 12/02/182342 Last Taken: Unknown Dose on 05/14/21 Last Action: Last Taken Edited on 05/17/21645 by ELISABETH MEJIA Pantoprazole Sodium (Protonix ) 40 Mg Tablet.dr, 40 MG PO DAILYAC for GERD, (Reported) Entered as Reported by: WILLIAM RASMUSSEN on 05/14/211356 Last Taken: Unknown Dose on 05/16/21 Last Action: Last Taken Edited on 05/17/21645 by ELISABETH MEJIA Sucralfate (Sucralfate) 1 Gm Tablet, 1 GM PO PRN PRN for GI SYMPTOMS, (Reported) Entered as Reported by: WILLIAM RASMUSSEN on 05/14/211356 Last Taken: Unknown Dose on 05/16/21 Last Action: Last Taken Edited on 05/17/21645 by ELISABETH MEJIA Justicifation of Admission Dx: Justifications for Admission: Justification of Admission Dx: Yes CHARLES PAUL FAITH DOCTOR May 24, 2021 10:51
== END 2021-05-19 13:50 | disposition home or self-care (01) ==
LOC: SURG 06:14 → 4 NORTH 11:28
PROVIDERS: ADMIT Surgery; ATTEND Surgery
DX: K44.9 Diaphragmatic hernia without obstruction or gangrene (principal); K21.9 Gastro-esophageal reflux disease without esophagitis
CPT/HCPCS: 43282; 88302; 96361; 96374; 96375; 96376; A4314; A4364; A4930; C1781; G0378; J0330; J0690; J1100; J1170; J2405; J2704; J2710; J3010; J3490; P9045; 96366; A4222; A4452; G0379